=== PATIENT | female | born 1975 | race Caucasian/White ===

== ENCOUNTER 2021-04-20 10:21 | Emergency (ER) | payer MEDICAID, SELFPAY ==
[2021-04-20 10:42] VITALS: BP 104/69; PULSE 71; RESP 16; TEMP 36.3; O2SAT 100; BMI 22.8
--- NOTE | 2021-04-20 12:35 | ED.GENADULT ---
HPI - General Adult General Chief complaint: Wound/Laceration Stated complaint: Finger lac Time Seen by Provider: 04/20/21 12:17 Source: patient Limitations: no limitations History of Present Illness HPI narrative: Patient presents to the ER with a left index finger laceration after cutting it on the hedge clippers laceration was approximately 1 cm in the distal pad of the left finger. Patient unsure of her tetanus status. Bleeding was controlled with pressure but is still bleeding at this time. Patient is without any other complaints at this time. Related Data Allergies Allergy/AdvReac Type Severity Reaction Status Date / Time prednisone [PREDNISONE] Allergy Severe memory Unverified 03/17/20 16:19 loss, tremors, stuttering Review of Systems Constitutional: Constitutional: Denies chills and Denies fever(s) Cardiovascular: Cardiovascular: Denies chest pain and Denies lightheadedness Respiratory: Respiratory: Denies cough Gastrointestinal: Gastrointestinal: Denies diarrhea, Denies nausea and Denies vomiting Musculoskeletal: Comments: Left index finger pain bleeding secondary to laceration Integumentary/Breasts: Comments: Laceration left index finger Hematologic/Lymphatic: Comments: Positive bleeding secondary to laceration PMFSH Past Medical History Attestation statement: The following information was validated with the patient. Social History Social History Advance Directives: No Advance Directives Information Provided: No Patient : No Physical Exam Vital Signs: Vital Signs: Last Vital Signs Temp 97.3 F 04/20/21 10:42 Pulse 71 04/20/21 10:42 Resp 16 04/20/21 10:42 BP 104/69 04/20/21 10:42 Pulse Ox 100 04/20/21 10:42 Body Mass Index 22.8 vital signs have been reviewed as normal and appeared to be correct. Blood pressure normal. Heart rate normal. Respiration rate normal. Temperature normal. Oxygen saturation normal. Appearance: Alert. Oriented X3. No acute distress. Head: Normal external exam. Normocephalic. Atraumatic. Eyes: PERRLA. EOMI. Conjunctiva and sclera normal. Eyelids normal. ENT: Pharynx normal. Uvula midline. Moist mucous membranes. Back: No CVA tenderness. Full range of motion noted. Skin: Left index finger there is a 1 cm C-shaped laceration distal pad wound is well approximated Extremities: Full range of motion flexion extension of the left hand. Neuro: Oriented X 3. No motor deficit. No sensory deficit. Reflexes normal. Course Course Course Narrative: Left index finger laceration Abrasion Contusion 0.5 mL Tdap IM given Procedures Procedure Narrative Procedure Narrative: Laceration repair left index finger 1 cm C-shaped Wound clean with Betadine saline 1% lidocaine used to anesthetize Wound irrigated with saline and Betadine probed for foreign body 5.0 nylon used to close x3 tolerated well Wound dressed Discharge Plan Discharge Clinical Impression: Laceration Patient Disposition: Home, Self-Care Instructions: Finger Laceration (ED) Additional Instructions: Suture removal 7-10 days Keep wound clean and dry Return if symptoms worsen or increased redness fever or pain
[2021-04-20] MEDS: Diphth,Pertus(ACell),Tet Adult 0.5 ML SYRINGE IM (12:54)
[2021-04-20] MEDS: Lidocaine HCl 1 % 20 ML VIAL 10 ML INFILTRATI (12:54)
== END 2021-04-20 13:00 | disposition home or self-care (01) ==
PROVIDERS: Emergency Provider Emergency Medicine Emergency Medical Services; PCP Family Medicine
DX: S61.211A Laceration without foreign body of left index finger without damage to nail, initial encounter (principal); M79.642 Pain in left hand; W27.1XXA Contact with garden tool, initial encounter; Y93.H2 Activity, gardening and landscaping; Y92.007 Garden or yard of unspecified non-institutional (private) residence as the place of occurrence of the external cause; Y99.9 Unspecified external cause status
CPT/HCPCS: 12001; 90471; 90715; 99283; 99284

== ENCOUNTER 2021-07-24 08:43 | Emergency (ER) | payer MEDICAID, SELFPAY ==
--- NOTE | ~2021-07-24 | XR_ITS ---
EXAMINATION: XR LUMBOSACRAL SPINE CLINICAL INFORMATION: Reason trauma and fall COMPARISON: None TECHNIQUE: Three views of the lumbosacral spine. FINDINGS: The vertebral bodies and posterior elements are normal. The disc spaces are preserved and the vertebral alignment is normal. The paraspinal soft tissues are normal. XR/XR lumbar spine 2-3V IMPRESSION: Unremarkable lumbar spine examination.
[2021-07-24 08:50] VITALS: BP 112/61; PULSE 78; RESP 18; TEMP 36.6; O2SAT 100; BMI 23.1
--- NOTE | 2021-07-24 09:44 | ED_ITS ---
HPI - Abdominal Pain General Chief Complaint: Abdominal Pain Stated Complaint: Back pain/abd pain Time Seen by Provider: 07/24/21 09:44 Source: patient Mode of arrival: ambulatory Limitations: no limitations History of Present Illness HPI narrative: Left lower abdominal pain and low back pain. Patient fell a few months ago roller skating. Now the pain is worse. Pain goes down her left left, mostly in the front stops halway down the quad. Patient has been waking up in the middle of the night with back pain. MD elicited complaint: abdominal pain and flank pain Onset (ago): month(s) Pain Consistency: constant Associated symptoms: denies other symptoms Related Data Previous Rx's Medication Instructions Recorded cyclobenzaprine 10 mg tablet 10 mg PO TID #10 tab 07/24/21 naproxen 500 mg tablet (Naprosyn) 500 mg PO BID #20 tab 07/24/21 Allergies Allergy/AdvReac Type Severity Reaction Status Date / Time prednisone [PREDNISONE] Allergy Severe memory Unverified 03/17/20 16:19 loss, tremors, stuttering Review of Systems Constitutional: Reports no additional constitutional complaints Eyes: Reports no additional eye complaints Denies dizziness Cardiovascular: Reports no additional cardiovascular complaints Respiratory: Reports as per HPI Gastrointestinal: Reports no additional gastrointestinal complaints Genitourinary: Reports no additional female genitourinary complaints Musculoskeletal: Reports no additional musculoskeletal complaints Skin/Breast: Denies rash Reports system reviewed and no additional complaints, except as documented, Denies dizziness and Denies Sensory deficit (Neuro) Psychiatric: Denies anxiety Physical Exam Vital Signs: Vital Signs: Last Vital Signs Temp 97.8 F 07/24/21 08:50 Pulse 71 07/24/21 10:00 Resp 16 07/24/21 10:00 BP 112/66 07/24/21 10:00 Pulse Ox 98 07/24/21 10:00 BMI result Body Mass Index 23.1 Const: General: healthy appearing Nutritional Appearance: average body habitus Orientation/consciousness: oriented to person and patient oriented x3 Limitations: no limitations HENMT: Head: Yes normal to inspection Ears: external ears normal General nose exam: Normal external nose present Mouth: Normal oral and palatal mucosa present and oropharynx normal Throat: Yes posterior oropharynx normal Eyes: General: appearance normal, both eyes and all related structures Neck: Other: supple Neck: Yes normal visual inspection Chest: Chest palpation & inspection: normal inspection of the chest Resp: Auscultation: clear to auscultation bilaterally Cardio: Jugular venous distension: no JVD Rate: regular rate Rhythm: regular rhythm Heart sounds: S1 normal heart sound present and S2 normal heart sound present GI: Other: no focal tenderness Inspection: Yes normal to inspection Palpation (GI): Soft to palpation, nontender and No hepatosplenomegaly present Auscultation: normal bowel sounds Back/Spine/Pelvis: Other: left SI pain, left sciatic notch pain Skin: General skin exam: no rashes or lesions noted Neuro: General: oriented to person and patient oriented x3 Cranial nerves: Yes CN's II-XII intact bilaterally Motor exam (neuro): 5/5 motor strength present throughout Sensory Exam: No Sensory deficit (Neuro) Extrem: Other: left hip with full range of motion Psych: Appearance: grossly normal Course Reevaluation(s) Reevaluation #1: Patient with SI joint and left sciatica, will dc on NSAIDs and flexeril Time: 11:35 MDM - Abdominal Pain Imaging Data lumbar sacral: Radiologist's impression: FINDINGS: The vertebral bodies and posterior elements are normal. The disc spaces are preserved and the vertebral alignment is normal. The paraspinal soft tissues are normal. XR/XR lumbar spine 2-3V IMPRESSION: Unremarkable lumbar spine examination. Discharge Plan Discharge Clinical Impression: Lumbar back pain Sciatica Qualifiers: Laterality: left Qualified Code(s): M54.32 - Sciatica, left side Patient Disposition: Home, Self-Care Instructions: Acute Low Back Pain (ED) Prescriptions: New cyclobenzaprine 10 mg tablet 10 mg PO TID Qty: 10 RF: 0 naproxen [Naprosyn] 500 mg tablet 500 mg PO BID Qty: 20 RF: 0 Referrals: Yariel Rubio MD [Primary Care Provider] - 5 days [facility] Social History Social History Patient Tobacco Use Status: Current everyday Tobacco user Use of substances other than those prescribed or required for medical reasons: No Advance Directives: No Advance Directives Information Provided: No Patient : No
[2021-07-24 10:00] VITALS: BP 112/66; PULSE 71; RESP 16; O2SAT 98
[2021-07-24] MEDS: Cyclobenzaprine HCl 10 MG TABLET PO (10:12)
[2021-07-24] MEDS: Ketorolac Tromethamine 60 MG/2 ML VIAL IM (10:13)
[2021-07-24 11:49] VITALS: BP 103/52; PULSE 71; RESP 16; O2SAT 99
== END 2021-07-24 11:59 | disposition home or self-care (01) ==
PROVIDERS: Emergency Provider Emergency Medicine; PCP Family Medicine
DX: M54.42 Lumbago with sciatica, left side (principal); F17.200 Nicotine dependence, unspecified, uncomplicated
CPT/HCPCS: 72100; 96372; 99284; 99285; J1885

== ENCOUNTER 2021-11-28 09:24 | Emergency (ER) | payer MEDICAID, SELFPAY ==
--- NOTE | ~2021-11-28 | CT_ITS ---
EXAMINATION: CT HEAD WITHOUT CONTRAST CLINICAL INFORMATION: Injury. Head pain COMPARISON: None TECHNIQUE: Contiguous axial imaging was performed from the skull base to vertex without intravenous administration of contrast. This CT examination was performed using dose optimization techniques as appropriate, variously including the following: *Automated exposure control *Adjustment of mA and/or kV according to patient size (this includes techniques or standardized protocols for targeted exams where dose is matched to indication/reason for exam; i.e. extremities or head) *Use of iterative reconstruction technique DLP: 582 mGy-cm FINDINGS: The sulci and ventricles appear normal. No intra or extra-axial fluid collection or hemorrhage, mass or mass effect. Calvarium intact. No fracture or destructive process seen. Lobular mucoperiosteal thickening seen in the right maxillary sinus. CT/CT head/brain wo con IMPRESSION: No acute intracranial pathology.
--- NOTE | ~2021-11-28 | CT_ITS ---
EXAMINATION: CT FACIAL BONES WITHOUT CONTRAST CLINICAL INFORMATION: Neck pain after trauma COMPARISON: None TECHNIQUE: Thin section axial images with sagittal and coronal reformats obtained. This CT examination was performed using dose optimization techniques as appropriate, variously including the following: *Automated exposure control *Adjustment of mA and/or kV according to patient size (this includes techniques or standardized protocols for targeted exams where dose is matched to indication/reason for exam; i.e. extremities or head) *Use of iterative reconstruction technique DLP: 193 mGy-cm FINDINGS: No fracture or destructive process. The orbital rims and zygomatic arches and mandible appear intact. The retrobulbar regions appear intact. The mastoid air cells are clear. Nasal septum is midline. No nasal bone fracture seen. The nasal septum is midline. There is lobular mucoperiosteal thickening seen in the right maxillary sinus. Other paranasal sinuses grossly are clear. CT/CT facial bones wo con IMPRESSION: No acute findings.
--- NOTE | ~2021-11-28 | CT_ITS ---
EXAMINATION: CT CERVICAL SPINE WITHOUT CONTRAST CLINICAL INFORMATION: Pain after trauma COMPARISON: None TECHNIQUE: Thin section axial images with sagittal and coronal reformats are obtained. This CT examination was performed using dose optimization techniques as appropriate, variously including the following: *Automated exposure control *Adjustment of mA and/or kV according to patient size (this includes techniques or standardized protocols for targeted exams where dose is matched to indication/reason for exam; i.e. extremities or head) *Use of iterative reconstruction technique DLP: 239 mGy-cm FINDINGS: No fracture or destructive process. Alignment preserved. No mass effect on the spinal canal. Prevertebral soft tissues are normal. Incidental note is made of disc space narrowing with marginal osteophyte formation at the C5-C6 level. CT/CT cervical spine wo con IMPRESSION: No acute findings. Mild degenerative change noted.
[2021-11-28 09:44] VITALS: BP 136/76; PULSE 78; RESP 16; TEMP 35.8; O2SAT 100; BMI 23.1
--- NOTE | 2021-11-28 10:10 | ED.GENADULT ---
HPI - General Adult General Chief complaint: General Medical Stated complaint: f inj cheek Time Seen by Provider: 11/28/21 10:02 Source: patient and family Mode of arrival: ambulatory Limitations: no limitations History of Present Illness HPI narrative: 46-year-old female with a history of fibromyalgia here with reports of left-sided facial pain, headache and neck pain after an injury which occurred on Saturday. Patient tells me she was doing some yd work when a branch fell hitting her in the face. Patient denies loss of consciousness. She does report after the fall she felt some left facial pain. No nose bleed, no vision changes. Patient tells me since the fall she has had headache, neck pain and left-sided facial pain. The branch also hit her left shoulder but patient tells me that she is able to move the shoulder completely and only reports some slight discomfort. She did have some dental work recently done but denies any loose teeth or dental pain. She is not on any anticoagulation Related Data Previous Rx's Medication Instructions Recorded cyclobenzaprine 10 mg tablet 10 mg PO TID #10 tab 07/24/21 naproxen 500 mg tablet (Naprosyn) 500 mg PO BID #20 tab 07/24/21 Allergies Allergy/AdvReac Type Severity Reaction Status Date / Time prednisone [PREDNISONE] Allergy Severe memory Unverified 03/17/20 16:19 loss, tremors, stuttering Review of Systems Review of Systems: Yes all other systems are reviewed and are negative Constitutional: Constitutional: Reports no additional constitutional complaints, Denies body ache(s), Denies chills, Denies fever(s), Reports headache(s) and Denies weakness Eyes: Eyes: Reports no additional eye complaints and Denies change in vision ENT: Reports system reviewed and no additional complaints, except as documented, Denies dizziness, Reports headache(s), Denies nasal congestion, Denies nasal discharge and Reports neck pain Cardiovascular: Cardiovascular: Reports no additional cardiovascular complaints, Denies chest pain, Denies leg edema and Denies dyspnea Respiratory: Respiratory: Reports no additional respiratory complaints, Denies cough and Denies dyspnea Gastrointestinal: Gastrointestinal: Reports no additional gastrointestinal complaints, Denies abdominal pain, Denies diarrhea, Denies nausea and Denies vomiting Genitourinary: Genitourinary: Reports no additional female genitourinary complaints and Denies urinary incontinence Musculoskeletal: Musculoskeletal: Reports no additional musculoskeletal complaints, Denies back pain, Denies arthralgias, Denies joint swelling, Reports neck pain, Denies numbness and Denies tingling Integumentary/Breasts: Skin/Breast: Reports system reviewed and no additional complaints, except as docu and Denies rash Neurologic: Reports system reviewed and no additional complaints, except as documented, Denies dizziness, Reports headache(s), Denies numbness, Denies tingling and Denies weakness PMF Past Medical History Attestation statement: The following information was validated with the patient. Source: old records reviewed and nursing notes reviewed Social History Social History Patient Tobacco Use Status: Current everyday Tobacco user Advance Directives: No Advance Directives Information Provided: No Physical Exam ED Vital Signs: Vital Signs - 24 hr 11/28/21 09:44 Temperature 96.5 F L Pulse Rate 78 Respiratory Rate 16 Blood Pressure 136/76 Pulse Oximetry 100 BMI result Body Mass Index 23.1 Const General: cooperative, healthy appearing, comfortable and no acute distress Orientation/consciousness: patient oriented x3 Limitations: no limitations HENMT Head: Yes normal to inspection, No Chew's sign and No raccoon eyes Ears: hearing grossly normal bilaterally and TM's normal bilaterally General nose exam: Normal external nose present Face and sinus: No ecchymosis, Yes edema (left slight facial swelling), No maxillary instability and Yes sinus tenderness (left maxillary) Mouth: Normal oral and palatal mucosa present, lip normal and tongue normal Teeth and gingiva: bridge (left upper partial.) Throat: Yes posterior oropharynx normal, Yes tonsils normal and Yes uvula midline Eyes General: appearance normal, both eyes and all related structures Visual Ca: normal visual ca by confrontation Alignment and Position: alignment normal Periorbital: periorbital findings normal Eyelids: Yes eyelids normal Conjunctivae: conjunctivae normal Sclerae: sclerae normal Corneas: corneas normal Pupils: Equal, round and reactive pupils present EOM: EOMs intact bilaterally Direct Ophthalmoscopy: normal light reflex and no photophobia Neck Other: There is slight cervical tenderness with no step-offs or deformities Neck: Yes normal visual inspection, Yes full ROM and Yes no lymphadenopathy Chest Chest palpation & inspection: normal inspection of the chest Resp Effort & Inspection: normal respiratory effort Auscultation: clear to auscultation bilaterally Cardio Rate: regular rate Rhythm: regular rhythm Peripheral pulses: Peripheral pulses 2+ throughout GI Inspection: Yes normal to inspection Palpation (GI): Soft to palpation and nontender General: Yes no CVA tenderness Back/Spine/Pelvis Back: no CVA tenderness Thoracic/Lumbar Spine: thoracic and lumbar spine normal to inspection Skin General skin exam: no rashes or lesions noted Neuro General: patient oriented x3 and moves all extremities Cranial nerves: Yes CN's II-XII intact bilaterally, Yes Equal, round and reactive pupils present, Yes Bilaterally intact EOM present, Yes Nystagmus not present, Yes Normal facial strength present and Yes Midline tongue present Cognition (Neuro): normal cognition Gait exam (Neuro): Normal gait present Motor exam (neuro): 5/5 motor strength present throughout Sensory Exam: Normal double simultaneous stimulation for sensation Extrem Other: To the superior aspect of left shoulder there is a small abrasion. There is no deformity or swelling. There is full range of motion of the shoulder. Distal radial and ulnar pulses palpated General: Yes normal to inspection, Yes no pedal edema and Yes no calf tenderness Course Course Course Narrative: 46-year-old female here with left-sided facial pain, headache and neck pain after an injury which occurred on Saturday. Will check CT head, facial bones and cervical spine. Normal neuro exam. Vitals are stable. Will give APAP for pain Reevaluation(s) Reevaluation #1: CT head, facial bones and cervical spine are unremarkable. Likely contusion. Patient was instructed about result. Reviewed worrisome signs and symptoms of when to return to the emergency department. Comfortable discharge home. Time: 12:30 Medical Decision Making [facility] Narrative Medical decision making narrative: Contusion, fracture Medical Records Medical records reviewed: Yes I reviewed the patient's medical records. Lab Data Lab results reviewed: Yes I reviewed the patient's lab results. Imaging Data cervical spine CT: Attestation: I personally reviewed and interpreted this imaging study as follows: Radiologist's impression: FINDINGS: No fracture or destructive process. Alignment preserved. No mass effect on the spinal canal. Prevertebral soft tissues are normal. Incidental note is made of disc space narrowing with marginal osteophyte formation at the C5-C6 level.? CT/CT cervical spine wo con IMPRESSION: No acute findings. Mild degenerative change noted.? ? CT head/facial bones: Attestation: I personally reviewed and interpreted this imaging study as follows: Radiologist's impression: FINDINGS: No fracture or destructive process. The orbital rims and zygomatic arches and mandible appear intact. The retrobulbar regions appear intact. The mastoid air cells are clear. Nasal septum is midline. No nasal bone fracture seen. The nasal septum is midline. There is lobular mucoperiosteal thickening seen in the right maxillary sinus. Other paranasal sinuses grossly are clear. CT/CT facial bones wo con IMPRESSION: No acute findings. ? Discharge Plan Discharge Clinical Impression: Contusion of face, Cervical strain, Contusion of left shoulder Patient Disposition: Home, Self-Care Instructions: Cervical Strain (DC), Contusion in Adults (ED), Facial Contusion (ED) Additional Instructions: Ice to the area Motrin as needed for pain CT scan looks normal Prescriptions: No Action cyclobenzaprine 10 mg tablet 10 mg PO TID Qty: 10 0RF naproxen [Naprosyn] 500 mg tablet 500 mg PO BID Qty: 20 0RF Referrals: Yariel Rubio MD [Primary Care Provider] - 1 week (for persistent symptoms ) Interventions: ED Discharge Assessment Last Done: 11/28/21 12:17 Discharge Date/Time: 11/28/21 12:19
[2021-11-28] MEDS: Acetaminophen 325 MG TABLET 975 MG PO (10:27)
== END 2021-11-28 12:19 | disposition home or self-care (01) ==
PROVIDERS: Emergency Provider Emergency Medicine; PCP Family Medicine
DX: S16.1XXA Strain of muscle, fascia and tendon at neck level, initial encounter (principal); S00.83XA Contusion of other part of head, initial encounter; S40.012A Contusion of left shoulder, initial encounter; W20.8XXA Other cause of strike by thrown, projected or falling object, initial encounter; F17.200 Nicotine dependence, unspecified, uncomplicated; Y93.H9 Activity, other involving exterior property and land maintenance, building and construction; Y92.017 Garden or yard in single-family (private) house as the place of occurrence of the external cause; Y99.9 Unspecified external cause status
CPT/HCPCS: 70450; 70486; 72125; 99282; 99284

== ENCOUNTER 2022-08-18 18:43 | Emergency (ER) | payer MEDICAID, SELFPAY ==
--- NOTE | 2022-08-18 18:51 | ED_ITS ---
HPI - Abdominal Pain General Chief Complaint: General Medical <Judi Mcmanus NP - Last Filed: 08/18/22 18:53> Stated Complaint: abd pain <Judi Mcmanus NP - Last Filed: 08/18/22 18:53> Time Seen by Provider: 08/18/22 19:46 <Judi Mcmanus NP - Last Filed: 08/18/22 18:53> Source: patient, RN notes reviewed and old records reviewed <Pablo Glynn - Last Filed: 08/18/22 20:14> Mode of arrival: ambulatory <Pablo Glynn - Last Filed: 08/18/22 20:14> Limitations: no limitations <Pablo Lujan Last Filed: 08/18/22 20:14> History of Present Illness HPI narrative: 47-year-old female presents for evaluation of flu-like symptoms. She complains of a sore throat, body aches, chills, abdominal pain that started 2 days ago. Patient reports that she can ?see white spots on my throat. ? She denies any difficulty swallowing but it is painful to swallow. She denies any shortness of breath She endorses postnasal drip as well as dry cough Patient denies any nausea, vomiting, diarrhea. She went to urgent care prior to coming here. She reports having a negative strep test, a negative urine sample. The provider there was apparently concern the patient may have ?thrush. ? <Pablo Glynn - Last Filed: 08/18/22 20:14> Related Data Home Medications: Previous Rx's Medication Instructions Recorded cyclobenzaprine 10 mg tablet 10 mg PO TID #10 tabs 07/24/21 naproxen 500 mg tablet (Naprosyn) 500 mg PO BID #20 tabs 07/24/21 amoxicillin 500 mg capsule 500 mg PO TID 7 days #21 caps 08/18/22 <Judi Mcmanus NP - Last Filed: 08/18/22 18:53> Allergies/Adverse Reactions: Allergies Allergy/AdvReac Type Severity Reaction Status Date / Time prednisone [PREDNISONE] Allergy Severe memory Unverified 03/17/20 16:19 loss, tremors, stuttering <Judi Mcmanus NP - Last Filed: 08/18/22 18:53> Review of Systems Constitutional: Reports as per HPI, Reports body ache(s), Reports chills, Reports fever(s) and Reports headache(s) <Pablo Glynn - Last Filed: 08/18/22 20:14> Reports headache(s) and Reports sore throat <Pablo Glynn - Last Filed: 08/18/22 20:14> Cardiovascular: Denies chest pain and Denies dyspnea <Pablo Glynn - Last Filed: 08/18/22 20:14> Respiratory: Denies dyspnea <Pablo Glynn - Last Filed: 08/18/22 20:14> Gastrointestinal: Reports abdominal pain, Denies constipation, Denies nausea and Denies vomiting <Pablo Glynn - Last Filed: 08/18/22 20:14> Genitourinary: Denies dysuria <Pablo Glynn - Last Filed: 08/18/22 20:14> Reports headache(s) <Pablo Glynn - Last Filed: 08/18/22 20:14> [facility] Social History Social History: Social History Patient Tobacco Use Status: Current everyday Tobacco user Advance Directives: No Advance Directives Information Provided: Yes <Judi Mcmanus NP - Last Filed: 08/18/22 18:53> Physical Exam ED Vital Signs: Vital Signs - 24 hr 08/18/22 18:52 Temperature 98.6 F Pulse Rate 71 Respiratory Rate 16 Blood Pressure 123/55 L Pulse Oximetry 100 Oxygen Delivery Method Room Air BMI result Body Mass Index 21.4 <Judi Mcmanus NP - Last Filed: 08/18/22 18:53> Vital Signs - 24 hr 08/18/22 18:52 Temperature 98.6 F Pulse Rate 71 Respiratory Rate 16 Blood Pressure 123/55 L Pulse Oximetry 100 Oxygen Delivery Method Room Air BMI result Body Mass Index 21.4 <Pablo Glynn - Last Filed: 08/18/22 20:14> Const General: healthy appearing, comfortable, no acute distress, alert and awake <Pablo Glynn - Last Filed: 08/18/22 20:14> Nutritional Appearance: well nourished < Last Filed: 08/18/22 20:14> Orientation/consciousness: patient oriented x3 < Last Filed: 08/18/22 20:14> HENMT Head: Yes normocephalic and Yes atraumatic < Last Filed: 08/18/22 20:14> Ears: external ears normal and TM's normal bilaterally < Last Filed: 08/18/22 20:14> Mouth: Normal oral and palatal mucosa present < Last Filed: 08/18/22 20:14> Teeth and gingiva: dentition normal < Last Filed: 08/18/22 20:14> Throat: Yes uvula midline and Yes other (Whitish retropharyngeal exudates with retropharyngeal edema.) < Last Filed: 08/18/22 20:14> Eyes Eyelids: Yes eyelids normal < Last Filed: 08/18/22 20:14> Conjunctivae: conjunctivae normal < Last Filed: 08/18/22 20:14> Sclerae: sclerae normal < Last Filed: 08/18/22 20:14> Corneas: corneas normal < Last Filed: 08/18/22 20:14> Pupils: Equal, round and reactive pupils present < Last Filed: 08/18/22 20:14> EOM: EOMs intact bilaterally < Last Filed: 08/18/22 20:14> Resp Effort & Inspection: normal respiratory effort, able to speak in complete sentences, no audible wheezes and not labored < Last Filed: 08/18/22 20:14> GI Inspection: No Abdominal wall edema and No distended < Last Filed: 08/18/22 20:14> Palpation (GI): Soft to palpation, nontender and no guarding < Last Filed: 08/18/22 20:14> Auscultation: normoactive bowel sounds <Pablo Glynn - Last Filed: 08/18/22 20:14> Skin General skin exam: no rashes or lesions noted and elasticity normal <Pablo Glynn - Last Filed: 08/18/22 20:14> Lesions: no lesions <Pablo Glynn - Last Filed: 08/18/22 20:14> Rashes: no rashes <Pablo Glynn - Last Filed: 08/18/22 20:14> Neuro General: patient oriented x3 <Pablo Glynn - Last Filed: 08/18/22 20:14> Cranial nerves: Yes Equal, round and reactive pupils present <Pablo Glynn - Last Filed: 08/18/22 20:14> Extrem General: Yes full ROM <Pablo Glynn - Last Filed: 08/18/22 20:14> Course Course Course Narrative: This is a rapid medical exam. Deferred additional HPI, ROS, PE to primary provider. 47 yo female with history of fibromyalgia here with lower abdominal pain, cough, back pain, fatigue today with sore throat x last several days. was seen at urgent care and referred in for further evaluation for abdominal pain. Will obtain labs, UA, viral testing. VSS <Judi Mcmanus NP - Last Filed: 08/18/22 18:53> Medical Decision Making Medical Decision Making MDM Narrative: 47-year-old female with no significant past medical history presents for evaluation of flu-like symptoms. Her chief complaint was a sore throat started 2 days ago. She has developed dry cough, headache and abdominal pain. The patient just has postnasal drip which is felt to be the cause of her cough, she denies any shortness of breath, her lung sounds are clear interval signs are stable. Patient's labs are reviewed and reassuring without significant abnormalities. Patient's influenza, COVID, RSV swab was negative. Clinically the patient most likely has strep pharyngitis and will treat as such. Will treat patient with amoxicillin 3 times a day for 7 days. I have very low suspicion for thrush as the patient is not immunocompromised <Pablo Glynn - Last Filed: 08/18/22 20:14> Differential Diagnosis Viral syndrome Upper respiratory infection Strep pharyngitis Sinusitis Bronchitis Influenza COVID-19 <Pablo Gretta - Last Filed: 08/18/22 20:14> Lab Data MDM Lab Attestation statement: I reviewed the patient's lab results. <Pablo Glynn - Last Filed: 08/18/22 20:14> No significant lab abnormalities <Pablo Glynn - Last Filed: 08/18/22 20:14> Result Diagrams: 08/18/22 19:10 08/18/22 19:10 <Judi Mcmanus ENTRY LEVEL ACCOUNT MANAGER - Last Filed: 08/18/22 18:53> Labs: Lab Results 08/18/22 08/18/22 08/18/22 Range/Units 19:10 19:10 19:10 WBC 5.5 (4.8-10.8) X10*3/uL RBC 4.69 (4.20-5.50) X10*6/uL Hgb 10.9 L (12.0-16.0) g/dl Hct 35.9 L (37.0-47.0) % MCV 76.5 L (80.0-98.0) fL MCH 23.2 L (27.0-33.0) pg MCHC 30.4 L (31.0-35.0) g/dl RDW 18.2 H (11.0-16.0) % Plt Count 315 (160-400) X10*3/uL MPV 10.1 (9.4-12.3) fL Immature Gran % (Auto) 0.2 (0.0-0.4) % Neut % (Auto) 41.6 L (45-73) % Lymph % (Auto) 46.8 H (20-40) % [place] % (Auto) 9.1 (2-11) % Eos % (Auto) 1.6 (0-4) % Baso % (Auto) 0.7 (0-2) % Lymph # (Auto) 2.6 (1.2-4.9) X10*3/uL [place] # (Auto) 0.5 (0.1-1.2) X10*3/uL Eos # (Auto) 0.1 (0.0-0.4) X10*3/uL Baso # (Auto) 0.0 (0.0-0.2) X10*3/uL Abs Immat Gran (auto) 0.01 (0.00-0.03) X10*3/uL Absolute Neuts (auto) 2.3 (2.0-8.3) x10*3/uL Absolute Nucleated RBC 0.000 (0.0-0.012) X10*3/uL Nucleated RBC % (auto) 0.0 (0.0-0.2) /100WBC Sodium 139 (135-145) mmol/L Potassium 4.6 (3.3-5.1) mmol/L Chloride 107 (96-108) mmol/L Carbon Dioxide 23 (22-29) mmol/L Anion Gap 14 (12-20) BUN 10 (9-16) mg/dL Creatinine 0.72 (0.5-1.4) mg/dL Estim Creat Clear Calc 83.4 Estimated GFR > 60 Random Glucose 93 (60-115) mg/dL Calcium 9.2 (8.4-10.2) mg/dL Total Bilirubin 0.6 (0.0-1.0) mg/dL Direct Bilirubin < 0.2 (0.0-0.5) mg/dL AST 15 (5-31) U/L ALT 10 (0-31) U/L Alkaline Phosphatase 59 (39-117) U/L Total Protein 6.5 (6.5-8.0) g/dL Albumin 4.3 (3.5-5.0) g/dL Influenza Type A (PCR) NEGATIVE (Negative) Influenza Type B (PCR) NEGATIVE (Negative) RSV RNA Qual (PCR) NEGATIVE (Negative) SARS-CoV-2 RNA (RT-PCR) NEGATIVE (Negative) <Judi Mcmanus, ENTRY LEVEL ACCOUNT MANAGER - Last Filed: 08/18/22 18:53> Lab Results 08/18/22 08/18/22 08/18/22 Range/Units 19:10 19:10 19:10 WBC 5.5 (4.8-10.8) X10*3/uL RBC 4.69 (4.20-5.50) X10*6/uL Hgb 10.9 L (12.0-16.0) g/dl Hct 35.9 L (37.0-47.0) % MCV 76.5 L (80.0-98.0) fL MCH 23.2 L (27.0-33.0) pg MCHC 30.4 L (31.0-35.0) g/dl RDW 18.2 H (11.0-16.0) % Plt Count 315 (160-400) X10*3/uL MPV 10.1 (9.4-12.3) fL Immature Gran % (Auto) 0.2 (0.0-0.4) % Neut % (Auto) 41.6 L (45-73) % Lymph % (Auto) 46.8 H (20-40) % [place] % (Auto) 9.1 (2-11) % Eos % (Auto) 1.6 (0-4) % Baso % (Auto) 0.7 (0-2) % Lymph # (Auto) 2.6 (1.2-4.9) X10*3/uL [place] # (Auto) 0.5 (0.1-1.2) X10*3/uL Eos # (Auto) 0.1 (0.0-0.4) X10*3/uL Baso # (Auto) 0.0 (0.0-0.2) X10*3/uL Abs Immat Gran (auto) 0.01 (0.00-0.03) X10*3/uL Absolute Neuts (auto) 2.3 (2.0-8.3) x10*3/uL Absolute Nucleated RBC 0.000 (0.0-0.012) X10*3/uL Nucleated RBC % (auto) 0.0 (0.0-0.2) /100WBC Sodium 139 (135-145) mmol/L Potassium 4.6 (3.3-5.1) mmol/L Chloride 107 (96-108) mmol/L Carbon Dioxide 23 (22-29) mmol/L Anion Gap 14 (12-20) BUN 10 (9-16) mg/dL Creatinine 0.72 (0.5-1.4) mg/dL Estim Creat Clear Calc 83.4 Estimated GFR > 60 Random Glucose 93 (60-115) mg/dL Calcium 9.2 (8.4-10.2) mg/dL Total Bilirubin 0.6 (0.0-1.0) mg/dL Direct Bilirubin < 0.2 (0.0-0.5) mg/dL AST 15 (5-31) U/L ALT 10 (0-31) U/L Alkaline Phosphatase 59 (39-117) U/L Total Protein 6.5 (6.5-8.0) g/dL Albumin 4.3 (3.5-5.0) g/dL Influenza Type A (PCR) NEGATIVE (Negative) Influenza Type B (PCR) NEGATIVE (Negative) RSV RNA Qual (PCR) NEGATIVE (Negative) SARS-CoV-2 RNA (RT-PCR) NEGATIVE (Negative) <Pablo Glynn - Last Filed: 08/18/22 20:14> Discharge Plan Discharge Clinical Impression: Exudative pharyngitis <Judi Mcmanus NP - Last Filed: 08/18/22 18:53> Patient Disposition: Home, Self-Care <Judi Mcmanus NP - Last Filed: 08/18/22 18:53> Instructions: Pharyngitis (ED) <Judi Mcmanus NP - Last Filed: 08/18/22 18:53> Additional Instructions: Take amoxicillin 3 times daily for the next 7 days. You may use Motrin and Tylenol for fevers, chills body aches and extension of fluid small sips at a time <Judi Mcmanus NP - Last Filed: 08/18/22 18:53> Prescriptions: New amoxicillin 500 mg capsule 500 mg PO TID 7 Days Qty: 21 0RF No Action cyclobenzaprine 10 mg tablet 10 mg PO TID Qty: 10 0RF naproxen [Naprosyn] 500 mg tablet 500 mg PO BID Qty: 20 0RF <Judi Mcmanus NP - Last Filed: 08/18/22 18:53>
[2022-08-18 18:52] VITALS: BP 123/55; PULSE 71; RESP 16; TEMP 37; O2SAT 100; BMI 21.4
[2022-08-18 19:15] LABS: MANUAL DIFF FLAG NO
--- NOTE | 2022-08-18 19:20 | PC.NURSE ---
Patient just left urgent care to come here. Urine was done.
[2022-08-18 19:22] LABS: Basophils Percent Auto 0.7 % (0-2); Eosinophils Absolute Auto 0.1 X10*3/uL (0.0-0.4); Eosinophils Percent Auto 1.6 % (0-4); Hematocrit 35.9 % (37.0-47.0); Hemoglobin 10.9 g/dl (12.0-16.0); Imm Gran Abs Auto 0.01 X10*3/uL (0.00-0.03); Imm Gran Pct Auto 0.2 % (0.0-0.4); Lymphocytes Absolute Auto 2.6 X10*3/uL (1.2-4.9); Lymphocytes Percent Auto 46.8 % (20-40); Mean Corpuscular HGB Conc 30.4 g/dl (31.0-35.0); Mean Corpuscular Hemoglobin 23.2 pg (27.0-33.0); Mean Corpuscular Volume 76.5 fL (80.0-98.0); Mean Platelet Volume 10.1 fL (9.4-12.3); Monocytes Absolute Auto 0.5 X10*3/uL (0.1-1.2); Monocytes Percent Auto 9.1 % (2-11); Neutrophils Absolute Auto 2.3 x10*3/uL (2.0-8.3); Neutrophils Percent Auto 41.6 % (45-73); Platelet Count 315 X10*3/uL (160-400); Red Blood Count 4.69 X10*6/uL (4.20-5.50); Red Cell Distribution Width 18.2 % (11.0-16.0); White Blood Count 5.5 X10*3/uL (4.8-10.8)
[2022-08-18 19:41] LABS: Alanine Aminotransferase 10 U/L (0-31); Albumin Level 4.3 g/dL (3.5-5.0); Alkaline Phosphatase 59 U/L (39-117); Anion Gap 14 (12-20); Aspartate Amino Transferase 15 U/L (5-31); Bilirubin Direct < 0.2 mg/dL (0.0-0.5); Bilirubin Total 0.6 mg/dL (0.0-1.0); Blood Urea Nitrogen 10 mg/dL (9-16); Calcium 9.2 mg/dL (8.4-10.2); Carbon Dioxide 23 mmol/L (22-29); Chloride 107 mmol/L (96-108); Creatinine Clr Calc Pharmacy 83.4; Estimated Glomerular Filt Rate > 60; Glucose Random 93 mg/dL (60-115); Potassium 4.6 mmol/L (3.3-5.1); Sodium 139 mmol/L (135-145); Total Protein 6.5 g/dL (6.5-8.0)
[2022-08-18 19:56] LABS: Influenza A PCR NEGATIVE (Negative); Influenza B PCR NEGATIVE (Negative); Resp Syncy Virus RNA Qual PCR NEGATIVE (Negative); SARS COV2 PCR INHOUSE NEGATIVE (Negative)
[2022-08-18 20:32] VITALS: BP 106/55; PULSE 72; RESP 16; TEMP 36.7; O2SAT 97
== END 2022-08-18 20:49 | disposition home or self-care (01) ==
PROVIDERS: Nurse Practitioner Family; Emergency Provider Emergency Medicine; PCP Family Medicine
DX: J02.8 Acute pharyngitis due to other specified organisms (principal); Z20.822 Contact with and (suspected) exposure to COVID-19; Z20.828 Contact with and (suspected) exposure to other viral communicable diseases; F17.200 Nicotine dependence, unspecified, uncomplicated
CPT/HCPCS: 0241U; 36415; 80048; 80076; 85025; 99283

== ENCOUNTER 2023-05-21 11:14 | Emergency (ER) | payer OTHER, SELFPAY ==
--- NOTE | ~2023-05-21 | XR_ITS ---
EXAMINATION: XR CHEST CLINICAL INFORMATION: Chest pain. COMPARISON: Rib/chest radiograph dated 08/09/2017. TECHNIQUE: 2 views of the chest were obtained. FINDINGS: The lungs are clear. The cardiomediastinal silhouette is normal in size. There is no pleural effusion or pneumothorax. No acute osseous abnormality. XR/XR chest 2V IMPRESSION: No acute cardiopulmonary findings.
--- NOTE | 2023-05-21 11:16 | ECG_ITS ---
Test Reason : cp Blood Pressure : / mmHG Vent. Rate : 070 BPM Atrial Rate : 070 BPM P-R Int : 134 ms QRS Dur : 076 ms QT Int : 400 ms P-R-T Axes : 065 046 057 degrees QTc Int : 432 ms Normal sinus rhythm Normal ECG When compared with ECG of 03-DEC-2013 10:08, No significant change was found Referred By: Sharlene Ling Electronically Signed By:JANIE CAT MD
[2023-05-21 11:34] VITALS: BP 142/53; PULSE 73; RESP 19; TEMP 36.6; O2SAT 100; BMI 22.3
--- NOTE | 2023-05-21 11:34 | ED.CHESTPAIN ---
HPI - Chest Pain General Chief Complaint: Chest Pain Stated Complaint: Chest pain/Lethargic sent by walk in clinic Time Seen by Provider: 05/21/23 14:16 History of Present Illness HPI narrative: The patient is a 47-year-old female who says that she has a history of fibromyalgia. She takes duloxetine. She says that she has been unwell for about 5 days. Her symptoms started last Saturday. She thinks she might have started with a fever on the 1st day but has not had ongoing fevers. She has had pressure-like discomfort in her chest and she has also had a profound sense of fatigue. She was worried that her symptoms might represent some kind of a contagious condition. She went to an urgent care but when she mentioned chest pain she was referred to the emergency room. She has had no pain or swelling in her legs. Related Data Previous Rx's Medication Instructions Recorded cyclobenzaprine 10 mg tablet 10 mg PO TID #10 tabs 07/24/21 naproxen 500 mg tablet (Naprosyn) 500 mg PO BID #20 tabs 07/24/21 amoxicillin 500 mg capsule 500 mg PO TID 7 days #21 caps 08/18/22 Allergies Allergy/AdvReac Type Severity Reaction Status Date / Time prednisone [PREDNISONE] Allergy Severe memory Verified 05/21/23 11:33 loss, tremors, stuttering Review of Systems Review of Systems: Yes all other systems are reviewed and are negative [facility] Social History Patient Tobacco Use Status: Current everyday Tobacco user Physical Exam Vital Signs: Vital Signs: Last Vital Signs Temp 97.9 F 05/21/23 14:14 Pulse 60 05/21/23 14:14 Resp 14 05/21/23 14:14 BP 111/62 05/21/23 14:14 Pulse Ox 100 05/21/23 14:14 O2 Del Method Room Air 05/21/23 14:14 BMI result Body Mass Index 22.3 Const: Other: The patient is awake, alert, pleasant, cooperative. She does not appear in acute distress. She does not appear obviously ill. HEENT: Other: The appearance of the face is unremarkable. Mucous membranes are moist. Pharynx is unremarkable. Eyes: Other: Pupils are round equal, conjunctivae are clear Neck: Other: No cervical adenopathy, neck is benign. Resp: Other: Lungs are clear bilaterally, no increased work of breathing or other signs of respiratory difficulty. Cardio: Other: The patient has a regular rate and rhythm no murmur. GI: Other: The abdomen is soft and nontender Skin: Other: Skin is dry and unremarkable. No rash. Neuro: Other: Patient is awake and alert. Mental status normal. Speech is clear. Moving all 4 extremities normally. Grossly neurologically intact. Extrem: Other: No calf swelling or tenderness, no leg asymmetry. No edema. Course Course Course Narrative: This is an RME: Additional HPI, ROS, PE not included below will be deferred to primary provider. This is a [id number], with a hx of fibromyalgia, presenting to the emergency department with complaints of cough and chest pain x 5 days. Chest pain feels heavy and is constant. She reports that she is coughing irregularly. VSS. Plan: Labs, EKG, CP Medical Decision Making Medical Decision Making MDM Narrative: Patient presents for evaluation of 5 days of chest discomfort and fatigue. Clinically she does not look ill. EKG is unremarkable. Troponin is undetectable. CBC shows normal white count and differential. Basic metabolic panel is unremarkable. Chest x-ray is clear. She is negative for influenza, RSV, and COVID. My overall impression is that the patient does not have any acutely dangerous process. She does not think she has been bitten by a tick. She may have some mild viral illness. I think she looks well enough for discharge and to follow-up with her regular doctor if not improving in the next several days. She should return if worse. Lab Data 05/21/23 12:34 05/21/23 12:34 Labs: Lab Results 05/21/23 Range/Units 12:34 WBC 6.0 (4.8-10.8) X10*3/uL RBC 4.85 (4.20-5.50) X10*6/uL Hgb 14.4 D (12.0-16.0) g/dl Hct 43.7 D (37.0-47.0) % MCV 90.1 (80.0-98.0) fL MCH 29.7 (27.0-33.0) pg MCHC 33.0 (31.0-35.0) g/dl RDW 14.4 (11.0-16.0) % Plt Count 188 D (160-400) X10*3/uL MPV 10.5 (9.4-12.3) fL Immature Gran % (Auto) 0.2 (0.0-0.4) % Neut % (Auto) 56.2 (45-73) % Lymph % (Auto) 34.1 (20-40) % [place] % (Auto) 8.2 (2-11) % Eos % (Auto) 0.8 (0-4) % Baso % (Auto) 0.5 (0-2) % Lymph # (Auto) 2.0 (1.2-4.9) X10*3/uL [place] # (Auto) 0.5 (0.1-1.2) X10*3/uL Eos # (Auto) 0.1 (0.0-0.4) X10*3/uL Baso # (Auto) 0.0 (0.0-0.2) X10*3/uL Abs Immat Gran (auto) 0.01 (0.00-0.03) X10*3/uL Absolute Neuts (auto) 3.4 (2.0-8.3) x10*3/uL Absolute Nucleated RBC 0.000 (0.0-0.012) X10*3/uL Nucleated RBC % (auto) 0.0 (0.0-0.2) /100WBC Sodium 137 (135-145) mmol/L Potassium 3.7 (3.3-5.1) mmol/L Chloride 106 (96-108) mmol/L Carbon Dioxide 28 (22-29) mmol/L Anion Gap 7 L (12-20) BUN 9 (9-16) mg/dL Creatinine 0.64 (0.5-1.4) mg/dL Estim Creat Clear Calc 93.8 Estimated GFR > 60 Random Glucose 72 (60-115) mg/dL Calcium 8.7 (8.4-10.2) mg/dL Total Bilirubin 0.3 (0.0-1.0) mg/dL Direct Bilirubin 0.1 (0.0-0.5) mg/dL AST 17 (5-31) U/L ALT 13 (0-31) U/L Alkaline Phosphatase 59 (39-117) U/L Troponin I High Sens < 2.7 (<3.5-17.0) ng/L Total Protein 6.7 (6.5-8.0) g/dL Albumin 4.2 (3.5-5.0) g/dL Influenza Type A (PCR) NEGATIVE (Negative) Influenza Type B (PCR) NEGATIVE (Negative) RSV RNA Qual (PCR) NEGATIVE (Negative) SARS-CoV-2 RNA (RT-PCR) NEGATIVE (Negative) Discharge Plan Discharge Clinical Impression: Chest pain, Fatigue Patient Disposition: Home, Self-Care Additional Instructions: Your testing in the emergency room today is quite reassuring. There is no sign of a heart attack. Additionally there is no sign of any significantly dangerous infection. You have tested negative for COVID, influenza, and RSV. Additionally your chest x-ray shows no pneumonia. It is possible you might have some kind of a viral infection causing her symptoms but I do not think you have any dangerously contagious disease. Please continue your duloxetine. Please continue other [id number] medications you have been using for your symptoms as well. Drink a lot of fluids. Please follow-up with your regular doctor in the next week or two if not improving. Return to the emergency room is significantly worse. Prescriptions: No Action cyclobenzaprine 10 mg tablet 10 mg PO TID Qty: 10 0RF naproxen [Naprosyn] 500 mg tablet 500 mg PO BID Qty: 20 0RF amoxicillin 500 mg capsule 500 mg PO TID 7 Days Qty: 21 0RF Referrals: Yariel Rubio MD [Primary Care Provider] -
[2023-05-21 12:40] LABS: MANUAL DIFF FLAG NO
[2023-05-21 12:42] LABS: Basophils Percent Auto 0.5 % (0-2); Eosinophils Absolute Auto 0.1 X10*3/uL (0.0-0.4); Eosinophils Percent Auto 0.8 % (0-4); Hematocrit 43.7 % (37.0-47.0); Hemoglobin 14.4 g/dl (12.0-16.0); Imm Gran Abs Auto 0.01 X10*3/uL (0.00-0.03); Imm Gran Pct Auto 0.2 % (0.0-0.4); Lymphocytes Percent Auto 34.1 % (20-40); Mean Corpuscular Hemoglobin 29.7 pg (27.0-33.0); Mean Corpuscular Volume 90.1 fL (80.0-98.0); Mean Platelet Volume 10.5 fL (9.4-12.3); Monocytes Absolute Auto 0.5 X10*3/uL (0.1-1.2); Monocytes Percent Auto 8.2 % (2-11); Neutrophils Absolute Auto 3.4 x10*3/uL (2.0-8.3); Neutrophils Percent Auto 56.2 % (45-73); Platelet Count 188 X10*3/uL (160-400); Red Blood Count 4.85 X10*6/uL (4.20-5.50); Red Cell Distribution Width 14.4 % (11.0-16.0)
[2023-05-21 12:55] LABS: Alanine Aminotransferase 13 U/L (0-31); Albumin Level 4.2 g/dL (3.5-5.0); Alkaline Phosphatase 59 U/L (39-117); Anion Gap 7 (12-20); Aspartate Amino Transferase 17 U/L (5-31); Bilirubin Direct 0.1 mg/dL (0.0-0.5); Bilirubin Total 0.3 mg/dL (0.0-1.0); Blood Urea Nitrogen 9 mg/dL (9-16); Calcium 8.7 mg/dL (8.4-10.2); Carbon Dioxide 28 mmol/L (22-29); Chloride 106 mmol/L (96-108); Creatinine Clr Calc Pharmacy 93.8; Estimated Glomerular Filt Rate > 60; Glucose Random 72 mg/dL (60-115); Potassium 3.7 mmol/L (3.3-5.1); Sodium 137 mmol/L (135-145); Total Protein 6.7 g/dL (6.5-8.0)
[2023-05-21 13:03] LABS: Troponin-I High Sensitivity < 2.7 ng/L (<3.5-17.0)
[2023-05-21 13:18] LABS: Influenza A PCR NEGATIVE (Negative); Influenza B PCR NEGATIVE (Negative); Resp Syncy Virus RNA Qual PCR NEGATIVE (Negative); SARS COV2 PCR INHOUSE NEGATIVE (Negative)
[2023-05-21 14:14] VITALS: BP 111/62; PULSE 60; RESP 14; TEMP 36.6; O2SAT 100
== END 2023-05-21 14:40 | disposition home or self-care (01) ==
PROVIDERS: Physician Assistant Medical; Emergency Provider Emergency Medicine; PCP Family Medicine
DX: R07.89 Other chest pain (principal); R53.83 Other fatigue; Z79.899 Other long term (current) drug therapy; Z20.822 Contact with and (suspected) exposure to COVID-19; Z20.828 Contact with and (suspected) exposure to other viral communicable diseases
CPT/HCPCS: 0241U; 71046; 80048; 80076; 84484; 85025; 93005; 99283; 99284